=== PATIENT | male | born 1980 | race Caucasian/White ===

== ENCOUNTER 2023-02-21 23:30 | Emergency (ER) | payer BC, SELFPAY ==
[2023-02-21 23:31] VITALS: BP 138/73; PULSE 117; RESP 16; TEMP 38.9; O2SAT 98; BMI 24.8
[2023-02-21 23:38] VITALS: TEMP 39.2
--- NOTE | 2023-02-21 23:48 | EDS_ITS ---
HPI History of Present Illness Chief Complaint: Fever Informant: patient Narrative Narrative: Presents today history sinus congestion fevers mild muscle discomfort. Vomiting diarrhea today nonbloody. Currently not nauseated. He has been drinking fluids. Last dose of Tylenol and Motrin at 4 PM. Sick contacts at work on Tuesday. No COVID home testing performed. Denies being diagnosed with COVID in the past since he has never checked. He is not vaccinated. Denies any past medical history. Denies any allergies. Denies urinary symptoms. A nonproductive cough. He states his [id number] medications are helping with his fevers however spiked again today. He is having chills. PFSH PFSH Home Medications nirmatrelvir 300 mg (150 mg x2)-ritonavir 100 mg tablet,dose pack (Paxlovid) See Rx Instructions PO .COMPLEX #30 tabs 02/22/23 [Rx Last Taken Unknown] ondansetron 4 mg disintegrating tablet 4 mg PO Q8H PRN PRN Nausea #10 tabs 02/22/23 [Rx Last Taken Unknown] Allergy/AdvReac Type Severity Reaction Status Date / Time No Known Allergies Allergy Verified 02/21/23 23:32 Social History Smoking Status: Current every day smoker tobacco type: e-cigarettes ROS ROS ED Constitutional Constitutional ED: Reports chills and fever(s); Denies sweats Eyes Eyes: Denies change in vision ENT ENT ED: Reports other Details: Sinus congestion ; Denies dysphagia or sore throat Cardiovascular Cardiovascular: Denies chest pain, leg edema, palpitations or racing heartbeat Respiratory/Chest Respiratory/Chest: Reports cough; Denies dyspnea or dyspnea on exertion Gastrointestinal Gastrointestinal: Reports diarrhea and vomiting; Denies abdominal pain or nausea Genitourinary Genitourinary ED: Denies dysuria, hematuria or urinary frequency Musculoskeletal Musculoskeletal: Denies back pain, extremity pain or neck pain Integumentary Denies rash or wounds Neurologic Neurologic: Denies headache(s), paresthesias or weakness EXAM Physical Exam Const Vital Signs: 02/21/23 23:31 02/21/23 23:36 02/21/23 23:38 Temperature 102.1 F H 102.5 F H Temperature Source Temporal Oral Pulse Rate 117 H Respiratory Rate 16 Respiratory Effort Normal Non-Labored Respiratory Pattern Normal Blood Pressure 138/73 H Blood Pressure Mean 94 Pulse Ox 98 Oxygen Delivery Method Room Air 02/22/23 00:22 Temperature Temperature Source Pulse Rate 105 H Respiratory Rate 15 Respiratory Effort Respiratory Pattern Blood Pressure Blood Pressure Mean Pulse Ox 98 Oxygen Delivery Method Room Air Positive well nourished and well developed General Appearance ED: well developed and NAD HEENT Reports TM's clear HEENT Narrative: Mild dry mucosal membranes. Mild erythema of turbinates, no swelling, clear drainage. normocephalic and atraumatic Tympanic Membrane ED: Yes TM's clear Eyes PERRL, EOMs intact bilaterally and conjunctivae normal General Eye ED: Yes normal appearance of both eyes Neck no lymphadenopathy and supple General: Negative for tenderness Chest Wall Chest: Negative for tenderness Resp normal respiratory effort and normal air movement Effort and Inspection: symmetric chest movement; Negative for respiratory distress Cardio regular rhythm and no murmurs Rate: tachycardic Peripheral Pulses: pulses 2+ throughout GI normal to inspection, nondistended, normoactive bowel sounds and non-tender GI Narrative: Negative Grimes's or McBurney's tenderness. Palpation: Negative for guarding or rebound tenderness present Back/Spine no CVA tenderness and no thoracic nor lumbar tenderness Extremity normal to inspection General Extremety ED: Negative for edema or tenderness General Extremity: Negative for edema Neuro oriented x3, CN's II-XII intact bilaterally and no sensory deficits noted Sensorium / Orientation: awake and alert Skin no rashes or lesions noted and no wounds MDM MDM MDM Narrative Medical decision making narrative: Interventions / MDM: Differential diagnosis: COVID infection, fever, electrolyte abnormalities Diagnosis considered but do not suspect: No clinical pneumonia My EKG interpretation: N/A Imaging independently reviewed and interpreted by myself: N/A External documents reviewed: N/A Test considered but not ordered:N/A ED course: Febrile tachycardic. Clinically not septic. No urinary symptoms. Mild dry mucosal membranes. IV established IV fluids given. Heart rate improved with fluids. Labs were 13 point. Normal electrolytes COVID-positive influenza negative. Discussed results with the patient.'s been tolerant oral fluids. Discussed continuing oral fluids for hydration. He is day 2 of symptoms. Discussed option for Paxlovid with side effects. He states he wants to think about it. He did not have his insurance information for prescriptions to fill meds to bed. He states he stayed 30 minutes away from here. Therefore prescriptions were printed for him to take to his pharmacy of choice. Pulse ox 98% room air and stable, no respiratory distress or dyspnea symptoms. He has commendation Motrin Tylenol [id number] at home. Discussed picking this up separately to alternate Tylenol Motrin to help with his fevers and continue oral fluids. All questions were answered. Re-evaluation: stable Disposition discussed with patient/family/significant other: Patient Case discussed with consulting clinician: N/A This note was generated with [employer] dictation software. It may contain incorrect words, spelling, and punctuation that were not noted in checking the note before signing. Lab Data Attestation: I reviewed the patient's lab results. Labs: Laboratory Results - last 24 hr 02/21/23 23:59 WBC 13.1 H RBC 5.02 Hgb 14.4 Hct 43.4 MCV 86.5 MCH 28.7 MCHC 33.2 RDW Std Deviation 38.8 RDW Coeff of [place] 12.3 Plt Count 208 MPV 10.4 Immature Gran % (Auto) 0.500 Neut % (Auto) 90.6 H Lymph % (Auto) 5.0 L [place] % (Auto) 3.4 Eos % (Auto) 0.2 Baso % (Auto) 0.3 Absolute Neuts (auto) 11.9 H Absolute Lymphs (auto) 0.65 L Nucleated RBC % 0 Sodium 138 Potassium 3.9 Chloride 104 Carbon Dioxide 28.0 Anion Gap 6 BUN 9 Creatinine 1.15 Estim Creat Clear Calc 76.28 Est GFR (MDRD) Af Amer 90 Est GFR (MDRD) Non-Af 74 BUN/Creatinine Ratio 7.8 L Glucose 123 H Calcium 9.2 Discharge Plan Triage Chief Complaint: Fever Other Complaint: Dizziness Nausea/Vomiting ED Provider: Oliver Philippe Dx/Rx/DC Orders Clinical Impression: COVID-19 virus infection, Fever, Cough Instructions: Coronavirus Disease 2019 (COVID-19): Caring for Yourself or Others, ED Fever Control (Adult) Prescriptions: New Paxlovid 300 mg (150 mg x 2)-100 mg tablets,dose pack See Rx Instructions .ROUTE .COMPLEX Qty: 30 0RF Rx Instructions: take TWO 150 mg tablets of nirmatrelvir with ONE 100 mg tablet of ritonavir twice daily for 5 days ondansetron [ondansetron] 4 mg tablet,disintegrating 4 mg PO Q8H PRN PRN (Reason: Nausea) Qty: 10 0RF Primary Care Provider: Care Physician,No Primary Referrals: Lizzette Fink MD [Med Staff - Bat Lathe Operator] - 1 Week NOT,DEFINED [Non-Staff] - Activity Restrictions/Additional Instructions: Workup positive for COVID-19. Negative influenza. Labs are stable. You are deciding if you would like to start Paxlovid which was written for your prescription. Continue oral fluids for hydration. Use Zofran as needed for nausea. Take Motrin and Tylenol alternating every 3 hours as needed for fevers. Disposition Disposition: Home, Self Care
[2023-02-21] MEDS: 0.9% Normal Saline (1000mL) 1,000 ML 1000 ML IV (23:58)
[2023-02-22] MEDS: Ondansetron 4 MG/2 ML Vial IV (00:20)
[2023-02-22] MEDS: Acetaminophen 500 MG Tablet 1000 MG PO (00:20)
[2023-02-22 00:22] VITALS: PULSE 105; RESP 15; O2SAT 98
[2023-02-22 00:23] LABS: Anion Gap 6 (5-15); BUN 9 mg/dL (7-18); BUN/Creat Ratio 7.8 RATIO (10-20); Calcium,Total 9.2 mg/dL (8.5-10.1); Chloride 104 mmol/L (98-107); Creatinine, Serum 1.15 mg/dL (0.70-1.30); EST Glomerular Filtration Rate 74 mL/min (>60); Est Glom Filt Rate - Afr Amer 90 mL/min (>60); Estimated Creatinine Clearance 76.28 ml/min; Glucose 123 mg/dL (74-106); Potassium 3.9 mmol/L (3.5-5.1); Sodium Level 138 mmol/L (136-145)
[2023-02-22 00:24] LABS: Absolute Lymphocyte Count 0.65 X10^3/uL (0.83-4.51); Absolute Neutrophil Count 11.9 X10^3/uL (2.0-7.7); Basophil# 0.04 X10^3/uL; Basophil% 0.3 % (0-1); Eosinophil# 0.02 X10^3/uL; Eosinophils% 0.2 % (0-5); Hematocrit 43.4 % (40-54); Hemoglobin 14.4 g/dL (13.0-16.5); Lymphocyte # 0.65 X10^3/ul (0.83-4.51); Mean Corp Hgb Conc 33.2 g/dL (32-36); Mean Corpuscular Hgb 28.7 pg (27.0-32.0); Mean Corpuscular Volume 86.5 fL (80-94); Mean Platelet Vol. 10.4 fl (6.2-12.0); Monocyte# 0.45 X10^3/uL; Monocyte% 3.4 % (0-10); NRBC Flagged by Analyzer 0 % (0-5); Neutrophil # 11.85 X10^3/uL (2.7-7.7); Neutrophil % 90.6 % (47-70); Platelet Count 208 K/mm3 (150-450); RBC Distribution Width CV 12.3 % (11.6-14.6); RBC Distribution Width SD 38.8 fl (35.1-43.9); Red Blood Count 5.02 M/mm3 (4.6-6.2); White Blood Count 13.1 K/mm3 (4.4-11.0)
[2023-02-22 00:56] VITALS: PULSE 103; RESP 14; O2SAT 98
== END 2023-02-22 01:51 | disposition home or self-care (01) ==
PROVIDERS: Emergency Provider Emergency Medicine; Visit Provider Emergency Medicine
DX: U07.1 COVID-19 (principal); R50.9 Fever, unspecified; R05.9 Cough, unspecified; F17.290 Nicotine dependence, other tobacco product, uncomplicated
CPT/HCPCS: 80048; 85025; 87428; 96361; 96374; 99285; J7030; A4216; J2405